=== PATIENT | female | born 1955 ===

== ENCOUNTER 2017-10-15 11:01 | Outpatient (CLI) | payer OTHER ==
[~2017-10-15] VITALS: Ht 154.9 cm; Wt 98.9 kg
== END 2017-10-15 11:20 | disposition home or self-care (01) ==
LOC: OFIC 805 11:01
DX: R51 Headache (principal); R22.1 Localized swelling, mass and lump, neck; J31.0 Chronic rhinitis

== ENCOUNTER → 2017-10-16 | Outpatient (CLI) | payer OTHER | END | disposition home or self-care (01) | LOC: TOM 09:45 | DX: R22.1 Localized swelling, mass and lump, neck (principal) | CPT/HCPCS: 70491; Q9965 ==

== ENCOUNTER 2017-10-29 10:38 | Outpatient (CLI) | payer OTHER ==
[~2017-10-29] VITALS: Ht 152.4 cm; Wt 103.4 kg
== END 2017-10-29 11:00 | disposition home or self-care (01) ==
LOC: OFIC 805 10:38
DX: J31.0 Chronic rhinitis (principal); G50.1 Atypical facial pain

== ENCOUNTER 2022-10-31 11:15 | Day surgery (SDC) | payer OTHER ==
[~2022-10-31] VITALS: Ht 154.9 cm; Wt 102.5 kg
[~2022-10-31 11:15] MED LIST: HORIZANT300 MG PO; SYNTHROID50 MCG PO; TENORMIN50 M1 PO
== END 2022-10-31 22:12 | disposition home or self-care (01) ==
LOC: CIR.AMB 11:15
PROVIDERS: ATTEND Student in an Organized Health Care Education/Training Program
DX: N85.00 Endometrial hyperplasia, unspecified (principal); N85.8 Other specified noninflammatory disorders of uterus; N95.0 Postmenopausal bleeding; Z20.822 Contact with and (suspected) exposure to COVID-19; I10 Essential (primary) hypertension